=== PATIENT | male | born 2000 | race Two or more races ===

== ENCOUNTER 2021-06-24 11:00 | Emergency (ER) | payer OTHER ==
[~2021-06-24] VITALS: Ht 180.3 cm; Wt 72.7 kg
[2021-06-24] MEDS ORDERED: ACETAMINOPHEN 500 MG TABLET PO ONE (12:15)
[2021-06-24 12:43] LABS: COVID AG,FIA SOURCE NASOPHARYNGEAL
[2021-06-24 13:08] VITALS: BP 128/88
[2021-06-24] MEDS ORDERED: DEXAMETHASONE SOD PHOS 4 MG/ML VIAL IM ONE (13:30)
[2021-06-24] MEDS ORDERED: PENICILLIN G BENZATHINE LA 1,200,000 UNITS/2 ML SYRINGE IM ONE (13:30)
== END 2021-06-24 13:32 | disposition home or self-care (01) ==
LOC: EMS 11:00
DX: J02.0 Streptococcal pharyngitis (principal); B95.5 Unspecified streptococcus as the cause of diseases classified elsewhere; Z20.822 Contact with and (suspected) exposure to COVID-19
CPT/HCPCS: 87426; 87430; 96372; 99283; J0561; J1100; 99284

== ENCOUNTER 2021-08-14 18:10 | Emergency (ER) | payer OTHER ==
[~2021-08-14] VITALS: Ht 172.7 cm; Wt 84.1 kg
[2021-08-14 18:57] VITALS: BP 137/79
[2021-08-14 21:16] LABS: COVID AG,FIA SOURCE NASOPHARYNGEAL
== END 2021-08-14 22:00 | disposition left against medical advice (07) ==
LOC: EMS 18:14
DX: R05.9 Cough, unspecified (principal); Z20.822 Contact with and (suspected) exposure to COVID-19
CPT/HCPCS: 87426; U0003

== ENCOUNTER 2021-08-30 11:04 | Emergency (ER) | payer OTHER ==
[~2021-08-30] VITALS: Ht 177.8 cm; Wt 78.2 kg
[2021-08-30 11:17] VITALS: BP 113/68
[2021-08-30 13:16] LABS: INFLUENZA TYPE A NEGATIVE FOR TYPE A (NEGATIVE); INFLUENZA TYPE B NEGATIVE FOR TYPE B (NEGATIVE)
[2021-08-30] MEDS ORDERED: GUAI-487 PO (13:22)
[2021-08-30] MEDS ORDERED: BENZ-70 PO (13:22)
== END 2021-08-30 13:24 | disposition home or self-care (01) ==
LOC: EMS 11:09
DX: J20.9 Acute bronchitis, unspecified (principal)
CPT/HCPCS: 87804; 99283

== ENCOUNTER 2022-01-14 12:14 | Emergency (ER) | payer OTHER ==
[~2022-01-14] VITALS: Ht 177.8 cm; Wt 75.0 kg
[~2022-01-14 12:14] MED LIST: BENZ-70 PO; GUAI-487 PO
[2022-01-14 12:37] VITALS: BP 133/72
[2022-01-14] MEDS ORDERED: IBUP-2070 PO (14:33)
== END 2022-01-14 15:15 | disposition home or self-care (01) ==
LOC: EMS 12:14
DX: S52.124A Nondisplaced fracture of head of right radius, initial encounter for closed fracture (principal); F12.90 Cannabis use, unspecified, uncomplicated; Z79.899 Other long term (current) drug therapy; V00.131A Fall from skateboard, initial encounter; Y93.89 Activity, other specified; Y92.89 Other specified places as the place of occurrence of the external cause; Y99.8 Other external cause status
CPT/HCPCS: 29105; 99283